=== PATIENT | male | born 1965 | race Caucasian/White ===

== ENCOUNTER 2022-04-24 13:59 | Outpatient (CLI) | payer OTHER, SELFPAY ==
--- NOTE | ~2022-04-24 | MR_ITS ---
EXAMINATION: MR knee RT wo con DATE: 04/24/2022 14:33 INDICATION: Right knee pain TECHNIQUE: Magnetic resonance imaging (MRI) of the right knee was performed without intravenous contr ast. Sequences included coronal PD-weighted FSE, coronal PD-weighted FS FSE, sagittal T2-weighted FS E, sagittal PD-weighted FS FSE and axial PD weighted fat saturated FSE. COMPARISON: None. FINDINGS: Medial compartment: Longitudinal horizontal tear extending from the inferior articular surface near the free edge at the lateral posterior horn transition to the periphery of the intra-articular surface at the junction of the body and posterior horn. Mild partial thickness chondral ulceration and some deep fissuring along the lateral margin of the central weightbearing medial femoral condyle. Shallow chondral fissuring a t the central aspect lateral tibial plateau with deeper fissuring at the lateral aspect of the medial tibial plateau along the shoulder the intercondylar eminence. No degenerative subchondral changes ap preciated. Lateral compartment: Lateral meniscus is normal. Mild chondral surface regularity along the posterior aspect of the latera l tibial plateau. There are some cartilage signal heterogeneity at the central weightbearing lateral femoral condyle suspicious for additional partial thickness fissuring. No degenerative subchondral ch anges. Patellofemoral compartment: Deep chondral fissure at the cephalad aspect of the medial trochlea with less severe partial thicknes s fissuring at the central to inferior aspect of the trochlear groove. Shallow chondral fissuring at the patellar apical ridge. No degenerative subchondral changes. Ligaments and tendons: Anterior and posterior cruciate ligaments are normal. The medial collateral ligament and fibular joseline ateral ligament complex are normal. Mild distal quadriceps tendinopathy without discrete tear. Additi onal mild tendinopathy and small enthesophytes at the anterior tibial tuberosity insertion of the dis diya patellar tendon. The visualized medial and lateral hamstring tendons as well as the iliotibial ba nd are normal. Fluid: Physiologic amount of fluid in the joint space. No loose osteochondral bodies identified. Multilobula jillian ganglion, potentially paravertebral cyst arising from the posterior horn of the medial meniscus v ersus small cluster of venous varices extending around the medial margin of the distal semimembranosu s tendon. Tiny Munoz's cyst. Osseous/other: Normal marrow signal. No fracture or pathologic marrow replacing process. IMPRESSION: 1. Longitudinal horizontal tear at the posterior horn of the medial meniscus. 2. 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 Reviewed, dictated and finalized at location A. IMPRESSION: 1. Longitudinal horizontal tear at the posterior horn of the medial meniscus. 2. 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
== END 2022-04-24 14:00 ==
PROVIDERS: PCP Orthopaedic Surgery; Visit Provider Orthopaedic Surgery
DX: S83.241A Other tear of medial meniscus, current injury, right knee, initial encounter (principal); X58.XXXA Exposure to other specified factors, initial encounter; M17.11 Unilateral primary osteoarthritis, right knee
CPT/HCPCS: 73721